=== PATIENT | male | born 1980 | race Caucasian/White ===

== ENCOUNTER 2016-07-30 08:28 | Emergency (ER) | payer BC ==
[~2016-07-30] VITALS: Ht 172.7 cm; Wt 84.0 kg
[~2016-07-30 08:28] MED LIST: BEN50 PO; BENADRYL; CLOB60CR2 TOP; FEXO180T61 PO; HC30CR25 TOP; HYDR-845 PO; KENC1 TOP; PRED20TA PO; PRED50TA PO
[2016-07-30 08:31] VITALS: Ht 172.7 cm; Wt 84.0 kg
[2016-07-30] MEDS ORDERED: DIPHENHYDRAMINE 50 MG INJ IM ONE (09:30)
[2016-07-30] MEDS ORDERED: METHYLPREDNISOLONE 125 MG INJ IM ONE (09:30)
[2016-07-30] MEDS ORDERED: KENC1 TOP (09:41)
--- NOTE | 2016-07-30 15:43 | ERD ---
ER Documentation Chief Complaint Date/Time DATE: 07/30/16 TIME: 15:40 Chief Complaint itch on arms, rash, unable to sleep x 1 month HPI 36-year-old male with a past medical history of eczema presents to the ED complaining of a chronic dermatitis that he has had it has bothering him for the last month. Reports that he has been here in previous years with a similar complaint. States that Amanda[employer]azz[employer] Flores worked for him during his last visit. States that he has not been able to get sleep at night. Reports that he has some slight left chest pain that does not radiate. Describes as achy and only occurs at night when he is unable to sleep. Denies any fever, chills pleuritic chest pain, wheezing, cough, fever, chills, abdominal pain, nausea, vomiting. Denies any new use of soaps, detergents, new clothing. Denies any exposure to pets or insects. Patient reports that he has seen a rag shredder for his symptoms. States that they always give him prednisone but does not alleviate his symptoms. ROS All systems reviewed and are negative except as per history of present illness. Medications Home Meds Active Scripts Triamcinolone Acetonide (Triamcinolone Acetonide) 0.1% - 15 Gm Cream.gm., 1 APPLIC TOP BID, #1 TUB Prov:ARSH RICARDO PA-C 07/30/16 Hydroxyzine Hcl* (Atarax*) 50 Mg Tab, 50 MG PO Q8H Y for ITCHING, #30 TAB Prov:AYLA BOWEN PA-C 12/20/15 Clobetasol Propionate* (Clobetasol Propionate*) 60 Gm Cream.gm., 1 APPLIC TOP BID for 14 Days, #1 TUB Prov:AYLA BOWEN PA-C 12/20/15 Hydrocortisone* Topical (Hydrocortisone* Topical) 2.5%-28.3 Gm Cream..g., 1 APPLIC TOP BID for MILD RASHES, #1 TUB Prov:MANN JAMIL MD 07/02/15 Triamcinolone Acetonide (Triamcinolone Acetonide) 0.1% - 15 Gm Cream.gm., 1 APPLIC TOP DAILY for SEVERE RASHES for 7 Days, TUB Prov:MANN JAMIL MD 07/02/15 Prednisone* (Prednisone*) 20 Mg Tab, 40 MG PO DAILY for 5 Days, TAB Prov:MANN JAMIL MD 07/02/15 Fexofenadine Hcl* (Mayra*) 180 Mg Tablet, 180 MG PO DAILY, #30 TAB Prov:MANN JAMIL MD 07/02/15 Prednisone* (Prednisone*) 50 Mg Tablet, 50 MG PO DAILY for 5 Days, TAB Prov:JUAN SANTORO NP 05/02/15 Diphenhydramine Hcl* (Benadryl*) 50 Mg Cap, 50 MG PO Q6H Y for ITCHING, #30 CAP Prov:JUAN SANTORO NP 05/02/15 Reported Medications [Benadryl] No Conflict Check 06/02/11 Allergies Allergies: Coded Allergies: No Known Allergy (Unverified , 12/19/15) PMhx/Soc History of Surgery: No Anesthesia Reaction: No Hx Neurological Disorder: No Hx Respiratory Disorders: No Hx Cardiac Disorders: No Hx Psychiatric Problems: No Hx Alcohol Use: Yes (socially) Hx Substance Use: No Hx Tobacco Use: No Physical Exam Vitals Vital Signs Date Time Temp Pulse Resp B/P Pulse Ox O2 Delivery O2 Flow Rate FiO2 07/30/16 08:31 97.8 75 18 154/89 96 Physical Exam Const: [id number], well-nourished. In no acute distress. Head: Atraumatic, normocephalic Eyes: Normal Conjunctiva without injection. No purulent discharge. PERRL. EOMI ENT: Normal external ear. Ear canal without erythema. Tympanic membrane pearly pitt without effusion or bulging. Nasal canal clear with normal turbinates. Moist oropharynx without tonsillar exudates. Non-erythematous pharynx. Uvula midline. No drooling. No trismus. Neck: Full range of motion. No meningismus. No cervical lymphadenopathy. Resp: Clear to auscultation bilaterally. No wheezing, rhonchi, rales, or crackles. No accessory muscle use. No retractions. Cardio: Regular rate and rhythm. No murmurs, rubs or gallops. Abd: Soft, non tender, non distended. Normal bowel sounds. No palpable masses. No rebound tenderness. No guarding. Skin: No petechiae, purpura. Chronic eczematous rash noted diffusely all over patient's body predominantly in the flexor surfaces of the popliteal fossa and wrists. No purulent discharge, bleeding, ductions, induration noted. Back: No midline tenderness. No CVA tenderness. Full range of motion of bilateral upper and lower extremities. No warmth to touch. Ext: No cyanosis, or edema. Neur: Awake and alert. Psych: Normal Mood and Affect Results 24 hrs Current Medications Medications (Trade) Dose Ordered Sig/Anam Route PRN Reason Start Time Stop Time Status Last Admin Dose Admin Diphenhydramine HCl (Benadryl) 50 mg ONCE ONCE IM 07/30/16 09:30 07/30/16 09:31 DC 07/30/16 09:09 Methylprednisolone Sodium Succinate (Solu-Medrol) 125 mg ONCE ONCE IM 07/30/16 09:30 07/30/16 09:31 DC 07/30/16 09:09 Procedures/MDM This is a 36-year-old male with a past medical history of eczema presents the ED complaining of a chronic rash that has worsened in the last month. Patient is afebrile and nontoxic-appearing. Patient has normal vital signs. Patient was treated here in the ED with Solu-Medrol, Benadryl IM with relief of his symptoms. Patient requested for triamcinolone cream. It will be prescribed for patient at this time. Other differential diagnosis include but is not limited to allergic contact dermatitis, urticaria, insect bites, cutaneous candidiasis, tinea infection, psoriasis. Low suspicion for SJS/TEN, sepsis, erythema multiforme, mejia, scabies, cellulitis, necrotizing fascitis, gangrene , meningococcemia, septic arthritis, or other emergent conditions. EKG reviewed and interpreted by Dr. Camp Rate/Rhythm: [66 bpm, Normal Sinus Rhythm] No ectopy, no ST elevations, normal axis. QRS, ST, T-waves: [No changes consistent w/ acute ischemia] Impression: [No evidence of ischemia or arrhythmia] Low suspicion for acute myocardial infarction, pneumothorax, pneumonia, cardiac tamponade, pulmonary embolism, AAA, aortic dissection, Boerhaave's syndrome, cardiac dysrhythmias,meningitis, intracranial bleed, seizure, stroke, TIA or other emergent conditions. Discharge medications: Triamcinolone Follow up with primary care physician in 1-2 days. Instructed patient to return to the ED sooner for any worsening symptoms. Patient's questions were answered. Patient understood and agreed with discharge plan. Patient discharged stable. Departure Diagnosis: Primary Impression: Chronic dermatitis Condition: Stable Patient Instructions: Managing Atopic Dermatitis, Self-Care for Skin Rashes, Dermatitis, Non-Specific Referrals: [facility] YOU HAVE RECEIVED A MEDICAL SCREENING EXAM AND THE RESULTS INDICATE THAT YOU DO NOT HAVE A CONDITION THAT REQUIRES URGENT TREATMENT IN THE EMERGENCY DEPARTMENT. FURTHER EVALUATION AND TREATMENT OF YOUR CONDITION CAN WAIT UNTIL YOU ARE SEEN IN YOUR DOCTORS OFFICE WITHIN THE NEXT 1-2 DAYS. IT IS YOUR RESPONSIBILITY TO MAKE AN APPOINTMENT FOR FOLOW-UP CARE. IF YOU HAVE A PRIMARY DOCTOR --you should call your primary doctor and schedule an appointment IF YOU DO NOT HAVE A PRIMARY DOCTOR YOU CAN CALL OUR PHYSICIAN REFERRAL HOTLINE AT IF YOU CAN NOT AFFORD TO SEE A PHYSICIAN YOU CAN CHOSE FROM THE FOLLOWING [facility] [address] [facility] [address] [facility] [address] [facility] [address] [facility] [address] [facility] [facility]. [address] [facility] [facility] YOU HAVE RECEIVED A MEDICAL SCREENING EXAM AND THE RESULTS INDICATE THAT YOU DO NOT HAVE A CONDITION THAT REQUIRES URGENT TREATMENT IN THE EMERGENCY DEPARTMENT. FURTHER EVALUATION AND TREATMENT OF YOUR CONDITION CAN WAIT UNTIL YOU ARE SEEN IN YOUR DOCTORS OFFICE WITHIN THE NEXT 1-2 DAYS. IT IS YOUR RESPONSIBILITY TO MAKE AN APPOINTMENT FOR FOLOW-UP CARE. IF YOU HAVE A PRIMARY DOCTOR --you should call your primary doctor and schedule and appointment IF YOU DO NOT HAVE A PRIMARY DOCTOR YOU CAN CALL OUR PHYSICIAN REFERRAL HOTLINE AT . IF YOU CAN NOT AFFORD TO SEE A PHYSICIAN YOU CAN CHOSE FROM THE FOLLOWING [facility] INSTITUTIONS: [facility] [address] [place] [address] [facility] [address] [place] [address] [facility] [address] [place] [address] [facility] URGENT CARE/SPECIALTIES Additional Instructions: FOLLOW UP WITH YOUR PRIMARY CARE PHYSICIAN TOMORROW for a referral to rag shredder. Return to this facility if you are not improving as expected. ARSH RICARDO PA-C Jul 30, 2016 15:43
== END 2016-07-30 09:52 | disposition home or self-care (01) ==
LOC: FTE 08:28
DX: L30.9 Dermatitis, unspecified (principal); R07.9 Chest pain, unspecified
CPT/HCPCS: 93005; 96372; 99284; J1200; J2930

== ENCOUNTER 2016-09-23 13:51 | Emergency (ER) | payer BC ==
[~2016-09-23] VITALS: Ht 160 cm; Wt 90.0 kg
[2016-09-23 13:53] VITALS: Ht 160 cm; Wt 90.0 kg
[2016-09-23] MEDS ORDERED: CLOB15OI15 TOP (14:25)
[2016-09-23] MEDS ORDERED: HYDR-845 PO (14:25)
--- NOTE | 2016-09-23 15:34 | ERD ---
ER Documentation Chief Complaint Date/Time DATE: 09/23/16 TIME: 15:27 Chief Complaint rash x 1 mos HPI 36 year old with a history of eczema presenting to the emergency department complaining of acute on chronic dermatitis for the past 6 months. Patient states that he has been here numerous times and has received steroid shots Benadryl and creams. Patient states that it gets better for about a week and then it it comes back. He states that the itchiness is severe. He denies any fevers, wheezing, shortness of breath chest pain. Patient states that he has seen his primary care physician numerous times. He rates his severe ROS All systems reviewed and are negative except as per history of present illness. Medications Home Meds Active Scripts Hydroxyzine Hcl* (Atarax*) 50 Mg Tab, 50 MG PO Q8H Y for ITCHING, #30 TAB Prov:AYLA BOWEN PA-C 09/23/16 Clobetasol Propionate* (Clobetasol Propionate*) 15 Gm Oint, 1 APPLIC TOP BID for 7 Days, #1 TUB Prov:AYLA BOWEN PA-C 09/23/16 Triamcinolone Acetonide (Triamcinolone Acetonide) 0.1% - 15 Gm Cream.gm., 1 APPLIC TOP BID, #1 TUB Prov:ARSH RICARDO PA-C 07/30/16 Hydroxyzine Hcl* (Atarax*) 50 Mg Tab, 50 MG PO Q8H Y for ITCHING, #30 TAB Prov:AYLA BOWEN PA-C 12/20/15 Clobetasol Propionate* (Clobetasol Propionate*) 60 Gm Cream.gm., 1 APPLIC TOP BID for 14 Days, #1 TUB Prov:AYLA BOWEN PA-C 12/20/15 Hydrocortisone* Topical (Hydrocortisone* Topical) 2.5%-28.3 Gm Cream..g., 1 APPLIC TOP BID for MILD RASHES, #1 TUB Prov:MANN JAMIL MD 07/02/15 Triamcinolone Acetonide (Triamcinolone Acetonide) 0.1% - 15 Gm Cream.gm., 1 APPLIC TOP DAILY for SEVERE RASHES for 7 Days, TUB Prov:MANN JAMIL MD 07/02/15 Prednisone* (Prednisone*) 20 Mg Tab, 40 MG PO DAILY for 5 Days, TAB Prov:MANN JAMIL MD 07/02/15 Fexofenadine Hcl* (Mayra*) 180 Mg Tablet, 180 MG PO DAILY, #30 TAB Prov:MANN JAMIL MD 07/02/15 Prednisone* (Prednisone*) 50 Mg Tablet, 50 MG PO DAILY for 5 Days, TAB Prov:JUAN SANTORO NP 05/02/15 Diphenhydramine Hcl* (Benadryl*) 50 Mg Cap, 50 MG PO Q6H Y for ITCHING, #30 CAP Prov:JUAN SANTORO NARCOTICS AND VICE DETECTIVE 05/02/15 Reported Medications [Benadryl] No Conflict Check 06/02/11 Allergies Allergies: Coded Allergies: No Known Allergy (Unverified , 12/19/15) PMhx/Soc History of Surgery: No Anesthesia Reaction: No Hx Neurological Disorder: No Hx Respiratory Disorders: No Hx Cardiac Disorders: No Hx Psychiatric Problems: No Hx Alcohol Use: Yes (socially) Hx Substance Use: No Hx Tobacco Use: No Physical Exam Vitals Vital Signs Date Time Temp Pulse Resp B/P Pulse Ox O2 Delivery O2 Flow Rate FiO2 09/23/16 13:53 97.8 74 18 138/89 99 Physical Exam Const: [] Head: Atraumatic Eyes: Normal Conjunctiva ENT: Normal External Ears, Nose and Mouth. Neck: Full range of motion..~ No meningismus. Resp: Clear to auscultation bilaterally Cardio: Regular rate and rhythm, no murmurs Abd: Soft, non tender, non distended. Normal bowel sounds Skin: Eczematous rash throughout hands and back Back: No midline or flank tenderness Ext: No cyanosis, or edema Neur: Awake and alert Psych: Normal Mood and Affect Procedures/MDM This is a 36-year-old male presenting to the emergency department with acute on chronic eczema for the past couple months. Patient is suitable to follow-up with his primary care physician to get a referral to see mobile sales technician. Patient has been here numerous times and is received prednisone and I believe that at this time it is best that he does not receive prednisone since his condition is chronic and needs dermatological follow-up. I have given patient a prescription for clobetasol cream to apply for the next week, I have given him instructions and discussed the risks. I have given him prescription for Atarax for itching. Discussed return to the ER for any worsening sinus symptoms. Patient understands and agrees with this plan Departure Diagnosis: Primary Impression: Dermatitis Condition: Stable Patient Instructions: Atopic Dermatitis (Eczema) Referrals: RANCHO BARNES (PCP) Additional Instructions: FOLLOW UP WITH YOUR PRIMARY CARE PHYSICIAN TOMORROW.Return to this facility if you are not improving as expected. You have been given a medicine which may cause drowsiness.DO NOT DRIVE OR OPERATE DANGEROUS MACHINERY while taking this medicine! Take all medicines as directed. AYLA BOWEN PA-C September 23, 2016 15:34
== END 2016-09-23 14:27 | disposition home or self-care (01) ==
LOC: E/R 13:51
DX: L30.9 Dermatitis, unspecified (principal)
CPT/HCPCS: 99284

== ENCOUNTER 2017-05-21 00:35 | Emergency (ER) | END 2017-05-21 02:38 | disposition home or self-care (01) ==

== ENCOUNTER 2017-06-25 10:12 | Emergency (ER) | END 2017-06-25 13:49 | disposition home or self-care (01) ==

== ENCOUNTER 2017-10-23 16:38 | Emergency (ER) | END 2017-10-23 19:38 | disposition home or self-care (01) ==